=== PATIENT | male | born 1930 | race Hispanic/Latino ===

== ENCOUNTER 2016-10-17 11:52 | Outpatient (CLI) | payer OTHER | END 2016-10-17 11:53 | disposition home or self-care (01) | LOC: LAB 11:52 | PROVIDERS: ATTEND Internal Medicine | DX: E11.9 Type 2 diabetes mellitus without complications (principal); J18.9 Pneumonia, unspecified organism | CPT/HCPCS: 36415; 83036 ==

== ENCOUNTER 2019-05-10 19:22 | Emergency (ER) | payer SELFPAY ==
--- NOTE | 2019-05-10 19:34 | Event Note ---
Date: 05/10/19 88-year-old gentleman status post reported mechanical fall from personal fdc, with left-sided forehead laceration. Check CT head and C-spine, screening laboratory studies, urinalysis, laceration will likely require repair.
[2019-05-10 19:43] VITALS: BP 160/90
[2019-05-10] MEDS ORDERED: LIDOCAINE 1%/EPINEPHRINE 1:100,000 VIAL (20 ML) INFILTRATI ONE (20:45)
[2019-05-10] MEDS ORDERED: TETANUS,DIPH,PERTUSS(ACELL) VACCINE 0.5 ML SYRINGE IM ONE (21:45)
[2019-05-10] MEDS ORDERED: ALUM-MAG HYDROXIDE-SIMETHICONE 200-200-20MG/5ML ORAL LIQD 30 ML ONE (23:29)
== END 2019-05-10 20:00 | disposition left against medical advice (07) ==
LOC: ED 19:22
DX: S01.81XA Laceration without foreign body of other part of head, initial encounter (principal); X58.XXXA Exposure to other specified factors, initial encounter; Y93.89 Activity, other specified; Y92.89 Other specified places as the place of occurrence of the external cause; Y99.8 Other external cause status
CPT/HCPCS: 90715